=== PATIENT | male | born 1955 | race Caucasian/White ===

== ENCOUNTER → 2018-07-10 | Outpatient (CLI) | payer OTHER ==
--- NOTE | 2018-07-10 12:06 | XR ---
EXAMINATION TYPE: XR thoracic spine complete DATE OF EXAM: 07/10/2018 CLINICAL HISTORY: pain TECHNIQUE: Frontal, lateral, and swimmer's view of thoracic spine are obtained. COMPARISON: None. FINDINGS: Thoracic spine show satisfactory alignment without evidence of acute fracture or dislocatio n. Vertebral body heights are preserved. Mild scattered degenerative disc space narrowing with some mild to moderate spondylosis seen. Visualized ribs are unremarkable. IMPRESSION: No acute fracture or dislocation is seen in the thoracic spine. ICD 10 NO FRACTURE, INIT IAL EVALUATION
--- NOTE | 2018-07-10 12:09 | XR ---
EXAMINATION TYPE: XR cervical spine comp DATE OF EXAM: 07/10/2018 CLINICAL HISTORY: pain COMPARISON: NONE TECHNIQUE: Frontal, lateral, oblique, swimmers, and open mouth view of the cervical spine are obtaine d. FINDINGS: Grade 1 anterolisthesis of C4 on C5 measuring 2.7 mm and related to the degenerative change of the cervical apophyseal joints. Bilateral neural foraminal encroachment is identified at C4-5 C5- 6 and C6-7. Moderate to severe degenerative narrowing at C4-5 C5-6 and C6-7 greatest at C5-6. Ventral and dorsal spondylosis identified. No fracture identified at this time. IMPRESSION: 1. Degenerative changes as discussed.
== END | disposition home or self-care (01) ==
LOC: RADXRYALE 10:18
PROVIDERS: ATTEND Internal Medicine
DX: M47.812 Spondylosis without myelopathy or radiculopathy, cervical region (principal); M54.6 Pain in thoracic spine
CPT/HCPCS: 72050; 72072

== ENCOUNTER → 2021-07-12 | Outpatient (CLI) | payer OTHER ==
--- NOTE | 2021-07-12 13:55 | XR ---
EXAMINATION TYPE: XR ankle complete LT DATE OF EXAM: 07/12/2021 COMPARISON: NONE HISTORY: Pain and swelling FINDINGS: Three views of the ankle demonstrate the ankle mortise to be intact and symmetric. The joint spaces are preserved. The osseous structures are intact. Soft tissue swelling suspected bilaterally. There is a bony density adjacent to the lateral margin of the calcaneus. IMPRESSION: 1. Tiny bony density adjacent to the lateral margin of the calcaneus could be related to previous avu lsion fracture injury correlate with point tenderness.
== END | disposition home or self-care (01) ==
LOC: RADXRYALE 12:56
PROVIDERS: ATTEND Internal Medicine
DX: M25.572 Pain in left ankle and joints of left foot (principal)